=== PATIENT | male | born 1950 | race Caucasian/White ===

== ENCOUNTER 2023-03-10 17:56 | Emergency (ER) | payer MEDICARE ==
[~2023-03-10] VITALS: Ht 175.3 cm; Wt 85.7 kg
--- NOTE | 2023-03-10 18:11 | NUR ---
Pt seen by . Safety measures in place. Will continue to monitor.
[2023-03-10] MEDS ORDERED: MIDO5TAB5 PO (18:21)
[2023-03-10] MEDS ORDERED: LATA7.5D EACHEYE (18:21)
[2023-03-10] MEDS ORDERED: CARB1TAB21 PO (18:21)
[2023-03-10] MEDS ORDERED: FLUO20CA42 PO (18:21)
[2023-03-10] MEDS ORDERED: FINA5TAB11 PO (18:21)
[2023-03-10 18:41] LABS: MEAN CORPUSCULAR HEMOGLOBIN 30.2 uug (23.8-33.4); MEAN CORPUSCULAR VOLUME 91.1 fL (73.0-96.2); PLATELET COUNT (AUTO) 208 K/uL (152-348)
[2023-03-10 18:54] LABS: CARBON DIOXIDE 31 mmol/L (21-32); CHLORIDE 106 mmol/L (98-107); GLUCOSE 117 mg/dL (74-106); POTASSIUM 4.8 mmol/L (3.5-5.1); UREA NITROGEN, BLOOD 19 mg/dL (7-18)
--- NOTE | 2023-03-10 19:03 | NUR ---
Gave report to Norm (SHAKIR).
--- NOTE | 2023-03-10 19:13 | NUR ---
Richard cohen in ED - 03/10/23 at 1954 by KARTIK REPORT RECEIVED FROM TREVOR RODRIGUES PT STABLE ON MONITOR , VSS, A,A AND O X 4.
--- NOTE | 2023-03-10 19:15 | NUR ---
Recieved report from Stephen SCHILLING.
[2023-03-10 19:21] LABS: *BILIRUBIN,URIN NEGATIVE (NEGATIVE); *BLOOD, URINE NEGATIVE (NEGATIVE); *CLARITY,URINE CLEAR (CLEAR); *COLOR,URINE YELLOW (YELLOW); *KETONES,URINE NEGATIVE (NEGATIVE); *UROBILINOGEN,URINE 0.2 E.U./dl (NORMAL); LEUKOCYTE ESTERASE ,URINE NEGATIVE (NEGATIVE); NITRITE, URINE NEGATIVE (NEGATIVE); PH,URINE 6.5 (5.0-8.0); UGLUCOSE NEGATIVE (NEGATIVE)
--- NOTE | 2023-03-10 19:28 | NUR ---
Richard cohen in EDM - 03/10/23 at 1954 by [email or web address] PT C/O CP, 8, RADIATING TO L JAW AND L ARM WITH NO SOB. AWARE.
[2023-03-10 19:43] LABS: MAGNESIUM 2.2 mg/dL (1.8-2.4)
--- NOTE | 2023-03-10 20:51 | NUR ---
Patient discharged to home in stable condition. Written and verbal after care instructions given. Patient verbalizes understanding of instructions. Stressed follow up or return to ER for worsening s/s. Patient was wheeled out and driven home by .
[2023-03-10 20:55] VITALS: BP 155/95
== END 2023-03-10 20:57 | disposition home or self-care (01) ==
LOC: ER 18:03
DX: G20 Parkinson's disease (principal); R07.89 Other chest pain; Z79.899 Other long term (current) drug therapy
CPT/HCPCS: 36415; 70450; 71045; 83735; 84484; 85025; 85730; 93005; A4663

== ENCOUNTER 2024-04-18 15:10 | Inpatient (IN) | payer MEDICARE ==
[~2024-04-18] VITALS: Ht 175.3 cm; Wt 79.4 kg
[~2024-04-18 15:10] MED LIST: CARB1TAB21 PO; DORZ10DR18 OP; FINA5TAB11 PO; LATA2.5D15 OP; MIDO5TAB5 PO; PIMA34CA PO; TROS20TA3 PO
[2024-04-18] MEDS ORDERED: TAMS-3 PO (18:11)
[2024-04-18] MEDS ORDERED: MAGN400O6 PO (18:11)
[2024-04-18] MEDS ORDERED: ONDA4VIA52 IV (18:11)
[2024-04-18] MEDS ORDERED: ACET325T53 PO (18:11)
[2024-04-18] MEDS ORDERED: ZINC113P3 TP (18:11)
[2024-04-18 18:42] VITALS: BP 175/75; TEMP 98.6; O2SAT 99
[2024-04-18 19:15] VITALS: BP 175/91; TEMP 97.6; O2SAT 97
[2024-04-18 20:00] VITALS: BP 164/78; TEMP 97.9; O2SAT 100
[2024-04-18] MEDS ORDERED: ACETAMINOPHEN 325 MG TABLET-SA PATIENTS-PAIN ONLY PO PRN (20:00)
[2024-04-18] MEDS ORDERED: hydrALAZINE HCL 25 MG TABLET PO PRN (20:00)
[2024-04-18 20:15] VITALS: BP 164/78; TEMP 97.9; O2SAT 94
[2024-04-18] MEDS: TAMSULOSIN HCL 0.4 MG CAP.SR.24H PO SCH (21:00)
[2024-04-18] MEDS: LATANOPROST OPHT DROP 2.5 ML BOTTLE OP SCH (21:00)
[2024-04-18] MEDS ORDERED: TROSPIUM CHLORIDE 20 MG PO SCH (21:00)
[2024-04-18] MEDS: REMEDY ESSENTIAL ZINC PASTE 113 GM TOP SCH (21:01)
[2024-04-18 22:29] VITALS: BP 179/87; TEMP 97.9; O2SAT 96
[2024-04-18] MEDS: hydrALAZINE HCL 25 MG TABLET PO PRN (23:30)
[2024-04-19 05:40] VITALS: BP 139/70; TEMP 99; O2SAT 93
[2024-04-19 09:00] VITALS: BP 122/59; TEMP 98.4; O2SAT 98
[2024-04-19] MEDS: CARBIDOPA/LEVODOPA 25-100MG TABLET PO SCH ×2 (09:28→18:01)
[2024-04-19] MEDS: FINASTERIDE 5 MG TABLET PO SCH (09:28)
[2024-04-19] MEDS: DORZOLAMIDE 2% OPHT DROP 10 ML BOTTLE EACHEYE SCH (09:38)
[2024-04-19 12:06] VITALS: BP 140/71; TEMP 97.8; O2SAT 95
[2024-04-19 16:00] VITALS: BP 140/83; TEMP 98.3; O2SAT 97
[2024-04-19] MEDS ORDERED: Medication Not On Formulary EA (Pimavanserin Tartrate (Nuplazid) 34 MG) PO SCH (17:00)
[2024-04-19] MEDS: NUPLAZID 34 MG PO SCH (17:15)
[2024-04-19 20:04] VITALS: BP 156/88; TEMP 98; O2SAT 96
[2024-04-19] MEDS: hydrALAZINE HCL 25 MG TABLET PO PRN (20:25)
[2024-04-19] MEDS: LATANOPROST OPHT DROP 2.5 ML BOTTLE EACHEYE SCH (21:56)
[2024-04-19] MEDS: ACETAMINOPHEN 325 MG TABLET PO PRN (23:46)
[2024-04-20 05:00] VITALS: BP 161/79; TEMP 98.2; O2SAT 95
[2024-04-20 07:28] VITALS: BP 149/76; TEMP 98.4; O2SAT 94
[2024-04-20 15:07] VITALS: BP 115/54; TEMP 97.6; O2SAT 94
[2024-04-21 08:00] VITALS: BP 111/65; TEMP 97.2; O2SAT 97
[2024-04-21 08:12] LABS: BASOPHILS % (AUTO) 0.3 % (0.0-2.0); EOSINOPHILS # (AUTO) 0.1 K/uL (0.0-0.7); EOSINOPHILS % (AUTO) 1.3 % (0.0-7.0); HEMATOCRIT 35.1 % (36.7-47.1); HEMOGLOBIN 11.9 g/dL (12.5-16.3); LYMPHOCYTES # (AUTO) 0.8 K/uL (0.8-4.8); MEAN CORPUSCULAR HEMOGLOBIN 30.9 uug (23.8-33.4); MEAN CORPUSCULAR HGB CONC 34 g/dL (32.5-36.3); MEAN CORPUSCULAR VOLUME 90.8 fL (73.0-96.2); MONOCYTES # (AUTO) 0.7 K/uL (0.1-1.30); MONOCYTES % (AUTO) 9.4 % (0.0-11.0); NEUTROPHILS # (AUTO) 5.7 K/uL (1.8-8.9); PLATELET COUNT (AUTO) 149 K/uL (152-348); RED BLOOD CELL COUNT(AUTO) 3.86 MIL/uL (4.06-5.63); WHITE BLOOD COUNT (AUTO) 7.4 K/uL (3.6-10.2)
[2024-04-21] MEDS: MULTIVITAMINS,THERAPEUTIC TABLET PO SCH (08:19)
[2024-04-21] MEDS: CHOLECALCIFEROL 1,000 UNIT TABLET PO SCH (08:19)
[2024-04-21 08:20] LABS: DIFFERENTIAL COMMENT 1
[2024-04-21 08:46] LABS: ALBUMIN 2.5 g/dL (3.4-5.0); BILIRUBIN,TOTAL 0.7 mg/dL (0.2-1.0); CALCIUM 8.3 mg/dL (8.5-10.1); CREATININE 0.9 mg/dL (0.6-1.3); MAGNESIUM 1.8 mg/dL (1.8-2.4); PHOSPHOROUS 3.3 mg/dL (2.5-4.9); POTASSIUM 3.7 mmol/L (3.5-5.1); TOTAL PROTEIN, SERUM 5.9 g/dL (6.4-8.2)
[2024-04-21] MEDS ORDERED: CHOLECALCIFEROL 400 UNITS TABLET PO SCH (09:00)
[2024-04-21 16:00] VITALS: BP 146/64; TEMP 97.6; O2SAT 97
[2024-04-21] MEDS: NUPLAZID 34 MG PO SCH (17:09)
[2024-04-22 08:00] VITALS: BP 96/57; TEMP 98.3; O2SAT 94
[2024-04-22] MEDS: AMANTADINE HCL 100 MG CAPSULE PO SCH (08:34)
[2024-04-22 12:12] VITALS: BP 123/64; TEMP 97.9; O2SAT 94
[2024-04-22 16:42] VITALS: BP 113/59; TEMP 97.8; O2SAT 97
[2024-04-23 10:11] VITALS: BP 119/70; TEMP 98.2
[2024-04-23 11:50] VITALS: BP 116/67; TEMP 97.6
[2024-04-23] MEDS: MIDODRINE HCL 5 MG TABLET PO PRN (13:39)
[2024-04-23 15:23] VITALS: BP 117/66; TEMP 98.3; O2SAT 97
[2024-04-23 15:43] VITALS: BP 125/72; TEMP 97.3; O2SAT 97
[2024-04-23 20:23] VITALS: BP 148/80; TEMP 97.9; O2SAT 94
[2024-04-24 06:53] VITALS: BP 124/70; TEMP 98.1; O2SAT 94
[2024-04-24 08:00] VITALS: BP 107/61; TEMP 98.4; O2SAT 95
[2024-04-24 17:43] VITALS: BP 115/69; TEMP 98.4; O2SAT 95
[2024-04-24 21:10] LABS: *BILIRUBIN,URIN NEGATIVE (NEGATIVE); *BLOOD, URINE 2+ (NEGATIVE); *CLARITY,URINE CLEAR (CLEAR); *COLOR,URINE YELLOW (YELLOW); *KETONES,URINE NEGATIVE (NEGATIVE); LEUKOCYTE ESTERASE ,URINE TRACE (NEGATIVE); NITRITE, URINE NEGATIVE (NEGATIVE); PH,URINE 5.5 (5.0-8.0); UGLUCOSE NEGATIVE (NEGATIVE)
[2024-04-24 21:25] LABS: *PROTEIN,URINE 3+ (NEGATIVE)
[2024-04-24 21:33] LABS: WBC,URINE 0-3 /HPF (0-3)
[2024-04-25 06:00] VITALS: BP 118/79; TEMP 97.2; O2SAT 94
[2024-04-25] MEDS: MAGNESIUM HYDROXIDE 30 ML LIQUID UDC PO PRN (10:04)
[2024-04-25] MEDS: CARBIDOPA/LEVODOPA 25-100MG TABLET PO SCH (17:06)
[2024-04-25] MEDS ORDERED: CARBIDOPA/LEVODOPA 25-100MG TABLET PO SCH (18:00)
[2024-04-25 20:00] VITALS: BP 133/70; TEMP 97.6; O2SAT 94
[2024-04-25] MEDS: AMANTADINE HCL 100 MG CAPSULE PO SCH (20:29)
[2024-04-26 06:16] VITALS: BP 125/58; TEMP 98.1; O2SAT 94
[2024-04-26 12:00] VITALS: BP 102/62; TEMP 97.9; O2SAT 93
[2024-04-26 12:24] VITALS: BP 122/73; O2SAT 94
[2024-04-26 16:00] VITALS: BP 141/80; TEMP 97.3; O2SAT 95
[2024-04-26 21:22] VITALS: BP 125/71; TEMP 98; O2SAT 96
[2024-04-27 05:39] VITALS: BP 138/76; TEMP 97.8; O2SAT 95
[2024-04-27 08:02] LABS: BASOPHILS % (AUTO) 0.3 % (0.0-2.0); EOSINOPHILS # (AUTO) 0.1 K/uL (0.0-0.7); EOSINOPHILS % (AUTO) 0.6 % (0.0-7.0); HEMATOCRIT 36.4 % (36.7-47.1); HEMOGLOBIN 12.1 g/dL (12.5-16.3); LYMPHOCYTES # (AUTO) 0.8 K/uL (0.8-4.8); LYMPHOCYTES % (AUTO) 8.5 % (20.5-51.5); MEAN CORPUSCULAR HGB CONC 33 g/dL (32.5-36.3); MEAN CORPUSCULAR VOLUME 90.6 fL (73.0-96.2); MONOCYTES # (AUTO) 0.5 K/uL (0.1-1.30); MONOCYTES % (AUTO) 5.6 % (0.0-11.0); NEUTROPHILS # (AUTO) 8.1 K/uL (1.8-8.9); PLATELET COUNT (AUTO) 301 K/uL (152-348); RED BLOOD CELL COUNT(AUTO) 4.02 MIL/uL (4.06-5.63); RED CELL DISTRIBUTION WIDTH 12.9 % (12.1-16.2); WHITE BLOOD COUNT (AUTO) 9.6 K/uL (3.6-10.2)
[2024-04-27 08:04] LABS: DIFFERENTIAL COMMENT 1
[2024-04-27 08:11] LABS: CALCIUM 8.6 mg/dL (8.5-10.1); POTASSIUM 4.1 mmol/L (3.5-5.1)
[2024-04-27] MEDS ORDERED: CEphaleXIN 500 MG CAPSULE PO SCH (09:15)
[2024-04-27 11:00] VITALS: BP_SYST 140; BP_SYST 60; BP_SYST 76; BP_DIAS 28; BP_DIAS 38; BP_DIAS 75
[2024-04-27] MEDS: CEFTRIAXONE 1 G in IV DEXTROSE 5% 50 ML IV SCH (12:31)
[2024-04-27 16:30] VITALS: BP 128/70; TEMP 97.6; O2SAT 95
[2024-04-27 18:16] VITALS: BP 117/75; TEMP 97.8; O2SAT 96
[2024-04-28 08:00] VITALS: BP 131/73; TEMP 97.7; O2SAT 93
[2024-04-28 08:05] LABS: BASOPHILS % (AUTO) 0.2 % (0.0-2.0); EOSINOPHILS # (AUTO) 0.1 K/uL (0.0-0.7); EOSINOPHILS % (AUTO) 0.7 % (0.0-7.0); HEMATOCRIT 37.4 % (36.7-47.1); HEMOGLOBIN 12.4 g/dL (12.5-16.3); LYMPHOCYTES % (AUTO) 11.4 % (20.5-51.5); MEAN CORPUSCULAR HGB CONC 33 g/dL (32.5-36.3); MEAN CORPUSCULAR VOLUME 90.7 fL (73.0-96.2); MONOCYTES # (AUTO) 0.4 K/uL (0.1-1.30); MONOCYTES % (AUTO) 4.6 % (0.0-11.0); NEUTROPHILS % (AUTO) 83.1 % (38.5-71.5); PLATELET COUNT (AUTO) 314 K/uL (152-348); RED BLOOD CELL COUNT(AUTO) 4.12 MIL/uL (4.06-5.63); RED CELL DISTRIBUTION WIDTH 12.8 % (12.1-16.2); WHITE BLOOD COUNT (AUTO) 8.4 K/uL (3.6-10.2)
[2024-04-28 08:07] LABS: DIFFERENTIAL COMMENT 1
[2024-04-28 08:17] LABS: CALCIUM 8.7 mg/dL (8.5-10.1); MAGNESIUM 2.1 mg/dL (1.8-2.4); PHOSPHOROUS 3.3 mg/dL (2.5-4.9); POTASSIUM 3.8 mmol/L (3.5-5.1)
[2024-04-28 16:00] VITALS: BP 141/79; TEMP 98.1; O2SAT 96
[2024-04-28] MEDS: MELATONIN 3 MG TABLET PO SCH (21:15)
[2024-04-29 08:28] VITALS: BP 135/76; TEMP 98.4; O2SAT 96
[2024-04-29] MEDS: CARBIDOPA/LEVODOPA CR 50-200MG TABLET.SA PO SCH (10:07)
[2024-04-29 11:20] VITALS: BP 112/61; O2SAT 95
[2024-04-29 13:47] VITALS: BP 136/77; O2SAT 96
[2024-04-29] MEDS ORDERED: NUPLAZID 34 MG PO SCH (17:00)
[2024-04-29 22:00] VITALS: BP 156/86; TEMP 97.6; O2SAT 95
[2024-04-30 06:49] VITALS: BP 135/76; TEMP 97.4; O2SAT 95
[2024-04-30 08:00] VITALS: BP 122/83; TEMP 98.6; O2SAT 96
[2024-04-30] MEDS: MIDODRINE HCL 5 MG TABLET PO SCH (08:31)
[2024-04-30 15:11] VITALS: BP 110/79; TEMP 98.1; O2SAT 95
[2024-04-30 20:00] VITALS: BP 122/84; TEMP 97.8; O2SAT 96
[2024-05-01 06:58] VITALS: BP 159/67; TEMP 96.7
[2024-05-01 08:00] VITALS: BP 102/69; TEMP 98.4; O2SAT 95
[2024-05-01 11:00] LABS: BASOPHILS % (AUTO) 0.6 % (0.0-2.0); EOSINOPHILS # (AUTO) 0.1 K/uL (0.0-0.7); EOSINOPHILS % (AUTO) 1.2 % (0.0-7.0); HEMATOCRIT 36.5 % (36.7-47.1); HEMOGLOBIN 12.4 g/dL (12.5-16.3); MEAN CORPUSCULAR HEMOGLOBIN 30.8 uug (23.8-33.4); MEAN CORPUSCULAR HGB CONC 34 g/dL (32.5-36.3); MEAN CORPUSCULAR VOLUME 90.6 fL (73.0-96.2); MONOCYTES # (AUTO) 0.6 K/uL (0.1-1.30); MONOCYTES % (AUTO) 6.8 % (0.0-11.0); NEUTROPHILS # (AUTO) 6.6 K/uL (1.8-8.9); NEUTROPHILS % (AUTO) 79.4 % (38.5-71.5); PLATELET COUNT (AUTO) 353 K/uL (152-348); RED BLOOD CELL COUNT(AUTO) 4.03 MIL/uL (4.06-5.63); RED CELL DISTRIBUTION WIDTH 12.9 % (12.1-16.2); WHITE BLOOD COUNT (AUTO) 8.3 K/uL (3.6-10.2)
[2024-05-01 11:02] LABS: DIFFERENTIAL COMMENT 1
[2024-05-01 11:16] LABS: ALBUMIN 2.6 g/dL (3.4-5.0); BILIRUBIN,TOTAL 0.4 mg/dL (0.2-1.0); CALCIUM 8.3 mg/dL (8.5-10.1); MAGNESIUM 2.2 mg/dL (1.8-2.4); PHOSPHOROUS 2.9 mg/dL (2.5-4.9); POTASSIUM 3.9 mmol/L (3.5-5.1); TOTAL PROTEIN, SERUM 6.1 g/dL (6.4-8.2)
[2024-05-01 12:00] VITALS: BP 141/77; TEMP 98.5; O2SAT 95
[2024-05-01 18:00] VITALS: BP 124/77; TEMP 97.7; O2SAT 97
[2024-05-01 20:00] VITALS: BP 148/78; TEMP 98.3; O2SAT 95
[2024-05-02 06:00] VITALS: BP 144/88; TEMP 97.3; O2SAT 95
[2024-05-02 08:00] VITALS: BP 150/77; TEMP 97.4; O2SAT 95
[2024-05-02 12:00] VITALS: BP 133/70; TEMP 98.3; O2SAT 98
[2024-05-02 16:00] VITALS: BP 135/75; TEMP 98.6; O2SAT 95
[2024-05-03 08:00] VITALS: BP 108/61; TEMP 98; O2SAT 97
[2024-05-03] MEDS ORDERED: CARBIDOPA/LEVODOPA CR 50-200MG TABLET.SA PO SCH (13:00)
[2024-05-03] MEDS: CARBIDOPA/LEVODOPA CR 25-100MG TABLET.SA PO SCH (13:46)
[2024-05-03 20:00] VITALS: BP 160/59; TEMP 98.4; O2SAT 96
[2024-05-03 22:00] VITALS: BP 150/61
[2024-05-04 05:40] VITALS: BP 126/68; TEMP 98.2; O2SAT 97
[2024-05-04 08:00] VITALS: BP 122/74; TEMP 98.4; O2SAT 95
[2024-05-04 13:32] VITALS: BP 122/74
== END 2024-05-04 14:50 | DRG 92 ==
PROVIDERS: ADMIT Physical Medicine & Rehabilitation; ATTEND Physical Medicine & Rehabilitation
DX: G92.8 Other toxic encephalopathy (principal); D68.59 Other primary thrombophilia; N17.9 Acute kidney failure, unspecified; N39.0 Urinary tract infection, site not specified; E44.0 Moderate protein-calorie malnutrition; N13.8 Other obstructive and reflux uropathy; I31.39 Other pericardial effusion (noninflammatory); J90 Pleural effusion, not elsewhere classified; F39 Unspecified mood [affective] disorder; G20.A1 Parkinson's disease without dyskinesia, without mention of fluctuations; I10 Essential (primary) hypertension; K80.20 Calculus of gallbladder without cholecystitis without obstruction; K86.9 Disease of pancreas, unspecified; T50.905D Adverse effect of unspecified drugs, medicaments and biological substances, subsequent encounter; G90.8 Other disorders of autonomic nervous system; B95.2 Enterococcus as the cause of diseases classified elsewhere; D64.9 Anemia, unspecified; N40.1 Benign prostatic hyperplasia with lower urinary tract symptoms; M89.8X9 Other specified disorders of bone, unspecified site; M47.812 Spondylosis without myelopathy or radiculopathy, cervical region; K57.30 Diverticulosis of large intestine without perforation or abscess without bleeding; K40.90 Unilateral inguinal hernia, without obstruction or gangrene, not specified as recurrent; F51.3 Sleepwalking [somnambulism]; E88.09 Other disorders of plasma-protein metabolism, not elsewhere classified; G62.9 Polyneuropathy, unspecified; I70.0 Atherosclerosis of aorta; I95.1 Orthostatic hypotension; Z91.81 History of falling
CPT/HCPCS: 36415; 83735; 84100; 84153; 85025; 97535-GO-CO; A4663; A6209; A6213; C1758; J0696